=== PATIENT | female | born 1940 | race Caucasian/White ===

== ENCOUNTER 2020-06-20 15:44 | Inpatient (IN) | payer MEDICARE, OTHER ==
[~2020-06-20] VITALS: Ht 162.6 cm; Wt 72.6 kg
--- NOTE | 2020-06-20 16:10 | NUR ---
LIYAH FROM E TO ER BED 12. AAOX4. DYSPNEIC. MODERATE DISTRESS. HYPOXIC NOTED @ 88% ON RA. BEING PLACE ON BIPAP. PT IS BROUGHT IN FOR SOB. PT IS NOTED AFIB RVR ON MONITOR, HR 140s. DAUGTHER REPORTED THAT SHE IS COVID POSITIVE AND PT IS EXPOSED TO HER. MD WAS AT THE BEDSIDE. RT AT BEDSIDE WELL. PT ALREADY ARRIVED WITH IV ON LFA 20G BY EMS.
[2020-06-20] MEDS ORDERED: LEVO88TA5 PO (16:43)
[2020-06-20] MEDS ORDERED: METO100T14 PO (16:43)
[2020-06-20] MEDS ORDERED: ATOR40TA PO (16:43)
[2020-06-20] MEDS ORDERED: CALC500T52 PO (16:43)
[2020-06-20] MEDS ORDERED: OMEP40CA13 PO (16:43)
[2020-06-20] MEDS ORDERED: RALO60TA14 PO (16:43)
[2020-06-20] MEDS ORDERED: RIVA10TA PO (16:43)
[2020-06-20 17:23] LABS: ABG BASE EXCESS -4.2 mmol/L; ABG OXYGEN SATURATION 99.4 % (92.0-98.5); ABG PCO2 29.5 mmHg (35.0-45.0); ABG PH 7.424 (7.350-7.450); ABG PO2 351.8 mmHg (75.0-100.0); AaDO2 331.7 mmHg; COHb 0.3 % (0.5-1.5); MetHb 0.4 % (0.0-1.5); O2Hb 98.7 % (94.0-97.0); SITE, ABG Right Radial; VENT MODE, BG ST 15/5 100%
[2020-06-20 17:37] LABS: CALCIUM, SERUM 8.3 mg/dL (8.5-10.1); CARBON DIOXIDE 24 mmol/L (21-32); CHLORIDE 103 mmol/L (98-107); GLUCOSE 160 mg/dL (74-106); SODIUM SERUM 138 mmol/L (136-145); UREA NITROGEN, BLOOD 21 mg/dL (7-18)
[2020-06-20 17:50] LABS: ALANINE AMINOTRANSFERASE 42 U/L (12-78); ALBUMIN 3.5 g/dL (3.4-5.0); ALKALINE PHOSPHATASE 62 U/L (46-116); ASPARTATE AMINOTRANSFERASE 49 U/L (15-37); B-TYPE NATRIURETIC PEPTIDE 3536 PG/ML (0-125); BILIRUBIN,DIRECT 0.2 mg/dL (0.0-0.2); BILIRUBIN,TOTAL 0.6 mg/dL (0.2-1.0)
[2020-06-20] MEDS ORDERED: METOPROLOL TARTRATE INJ 5 MG/5 ML AMPUL IV ONE ×2 (18:00)
[2020-06-20] MEDS ORDERED: FUROSEMIDE 40 MG/4 ML VIAL IV ONE (18:00)
[2020-06-20] MEDS ORDERED: METOPROLOL TARTRATE INJ 5 MG/5 ML AMPUL ONE (18:01)
[2020-06-20] MEDS ORDERED: FUROSEMIDE 40 MG/4 ML VIAL ONE (18:01)
--- NOTE | 2020-06-20 18:15 | NUR ---
MD AWARE THAT PT'S BP IS 96/69 HR 120. PT HELD METOPROLOL 5MG IV BUT LASIX IS STILL GIVEN PER MD ORDERED
[2020-06-20 18:18] LABS: C-REACTIVE PROTEIN 1.2 mg/dL (0.0-0.9); CREATINE KINASE, TOTAL 206 U/L (26-192); FERRITIN 690 ng/mL (8-388)
[2020-06-20 18:25] LABS: D-DIMER 1.27 mg/L(FEU (0.17-0.50)
--- NOTE | 2020-06-20 19:41 | NUR ---
PAGED [facility].
--- NOTE | 2020-06-20 19:43 | NUR ---
MD MARIE AWARE OF VS. CANCELLED METOPROLOL ORDER
--- NOTE | 2020-06-20 20:11 | NUR ---
LINH, DAUGHTER [phone]
--- NOTE | 2020-06-20 21:37 | NUR ---
PT IS NOW ON NASAL CANULA @ 3LPM. TOLERATING WELL. 02 SAT 96%.
[2020-06-20 22:53] LABS: BASOPHILS % (AUTO) 0.5 % (0.0-2.0); EOSINOPHILS % (AUTO) 0.4 % (0.0-6.0); HEMATOCRIT 42 % (33-45); HEMOGLOBIN 13.7 g/dL (11.5-14.8); LYMPHOCYTES # (AUTO) 0.7 /CMM (0.8-4.8); LYMPHOCYTES % (AUTO) 8.5 % (20.0-44.0); MEAN CORPUSCULAR HGB CONC 32 g/dl (31.0-36.0); MEAN CORPUSCULAR VOLUME 92 fL (82-100); MONOCYTES # (AUTO) 0.5 /CMM (0.1-1.30); MONOCYTES % (AUTO) 5.9 % (2.0-12.0); NEUTROPHILS # (AUTO) 7.2 /CMM (1.8-8.9); NEUTROPHILS % (AUTO) 84.7 % (43.0-81.0); PLATELET COUNT (AUTO) 156 /CMM (150-450); RED BLOOD CELL COUNT(AUTO) 4.59 MIL/uL (4.0-5.2); WHITE BLOOD COUNT (AUTO) 8.6 K/uL (4.3-11.0)
[2020-06-20] MEDS ORDERED: ZOLPIDEM TARTRATE 5 MG TABLET PO PRN (23:00)
[2020-06-20] MEDS ORDERED: Z GUARD REMEDY 2 OZ OINT TP PRN (23:00)
[2020-06-20] MEDS ORDERED: ENOXAPARIN SODIUM 40 MG/0.4 ML DISP.SYRIN SQ SCH (23:00)
[2020-06-20] MEDS ORDERED: ACETAMINOPHEN 325 MG TABLET PO PRN (23:00)
[2020-06-20] MEDS ORDERED: HYDROCODONE/APAP 5/325MG TABLET PO PRN (23:00)
[2020-06-20] MEDS ORDERED: ONDANSETRON HCL/PF 4 MG/2 ML VIAL IVP PRN (23:00)
[2020-06-20] MEDS ORDERED: ENOXAPARIN SODIUM 40 MG/0.4 ML DISP.SYRIN SQ ONE (23:31)
--- NOTE | 2020-06-21 04:07 | NUR ---
patient ambulated to the restroom with a steady gait.
[2020-06-21 04:12] LABS: BASOPHILS % (AUTO) 0.3 % (0.0-2.0); HEMATOCRIT 39 % (33-45); HEMOGLOBIN 12.9 g/dL (11.5-14.8); LYMPHOCYTES # (AUTO) 1.4 /CMM (0.8-4.8); LYMPHOCYTES % (AUTO) 23.7 % (20.0-44.0); MEAN CORPUSCULAR HGB CONC 33 g/dl (31.0-36.0); MEAN CORPUSCULAR VOLUME 92 fL (82-100); MONOCYTES # (AUTO) 0.6 /CMM (0.1-1.30); MONOCYTES % (AUTO) 11.2 % (2.0-12.0); NEUTROPHILS # (AUTO) 3.7 /CMM (1.8-8.9); NEUTROPHILS % (AUTO) 64.8 % (43.0-81.0); PLATELET COUNT (AUTO) 126 /CMM (150-450); RED BLOOD CELL COUNT(AUTO) 4.22 MIL/uL (4.0-5.2); WHITE BLOOD COUNT (AUTO) 5.7 K/uL (4.3-11.0)
[2020-06-21 04:26] LABS: CALCIUM, SERUM 7.7 mg/dL (8.5-10.1); CREATININE 0.8 mg/dL (0.6-1.3); MAGNESIUM 2.3 mg/dL (1.8-2.4); PHOSPHORUS 3.9 mg/dL (2.5-4.9); POTASSIUM 3.4 mmol/L (3.5-5.1)
[2020-06-21] MEDS ORDERED: PANTOPRAZOLE 40 MG TABLET.DR PO SCH (07:30)
--- NOTE | 2020-06-21 07:50 | NUR ---
pt in bed sleeping. easily arrousable. nad noted
[2020-06-21] MEDS: LEVOTHYROXINE SODIUM 88 MCG TABLET PO SCH (08:30)
[2020-06-21] MEDS ORDERED: PANTOPRAZOLE 40 MG TABLET.DR PO ONE (08:42)
[2020-06-21] MEDS ORDERED: ATORVASTATIN 40 MG TABLET ONE (08:44)
[2020-06-21] MEDS ORDERED: METOPROLOL TARTRATE 50 MG TABLET ONE ×2 (08:44→17:17)
[2020-06-21] MEDS ORDERED: POTASSIUM CHLORIDE 20 MEQ TAB.PRT.SR PO ONE ×4 (09:00→11:37)
[2020-06-21] MEDS: RALOXIFENE 60 MG TABLET PO SCH (09:43)
[2020-06-21] MEDS: METOPROLOL TARTRATE 50 MG TABLET PO SCH ×2 (09:44→18:00)
[2020-06-21] MEDS: RIVAROXABAN 10 MG TABLET PO SCH (09:44)
[2020-06-21] MEDS: CALCIUM CARBONATE (1250) 500 MG TABLET PO SCH ×3 (09:44→18:00)
[2020-06-21] MEDS: ATORVASTATIN 40 MG TABLET PO SCH (09:44)
[2020-06-21] MEDS ORDERED: FUROSEMIDE 40 MG/4 ML VIAL ONE ×3 (09:47→17:17)
--- NOTE | 2020-06-21 09:57 | NUR ---
pt provided with breakfast
[2020-06-21] MEDS: FUROSEMIDE 40 MG/4 ML VIAL IV SCH ×3 (10:04→18:02)
[2020-06-21] MEDS: POTASSIUM CHLORIDE 20 MEQ TAB.PRT.SR PO SCH ×3 (10:04→12:40)
--- NOTE | 2020-06-21 13:21 | NUR ---
PT'S DAUGHTER UPDATED REGARDING PT.
--- NOTE | 2020-06-21 21:56 | NUR ---
PT ON 2LPM O2 VIA NC
--- NOTE | 2020-06-22 03:21 | NUR ---
PT AMBULATORY TO RESTROOM WITH STEADY GAIT
[2020-06-22 03:56] LABS: BASOPHILS % (AUTO) 0.2 % (0.0-2.0); EOSINOPHILS % (AUTO) 0.1 % (0.0-6.0); HEMATOCRIT 44 % (33-45); HEMOGLOBIN 14.6 g/dL (11.5-14.8); LYMPHOCYTES # (AUTO) 1.4 /CMM (0.8-4.8); LYMPHOCYTES % (AUTO) 24.9 % (20.0-44.0); MEAN CORPUSCULAR HGB CONC 33 g/dl (31.0-36.0); MEAN CORPUSCULAR VOLUME 91 fL (82-100); MONOCYTES # (AUTO) 0.6 /CMM (0.1-1.30); MONOCYTES % (AUTO) 10.7 % (2.0-12.0); NEUTROPHILS # (AUTO) 3.7 /CMM (1.8-8.9); NEUTROPHILS % (AUTO) 64.1 % (43.0-81.0); PLATELET COUNT (AUTO) 149 /CMM (150-450); RED BLOOD CELL COUNT(AUTO) 4.82 MIL/uL (4.0-5.2); WHITE BLOOD COUNT (AUTO) 5.8 K/uL (4.3-11.0)
[2020-06-22 04:13] LABS: ALBUMIN 3.6 g/dL (3.4-5.0); BILIRUBIN,TOTAL 0.7 mg/dL (0.2-1.0); CALCIUM, SERUM 8.5 mg/dL (8.5-10.1); PHOSPHORUS 2.3 mg/dL (2.5-4.9); POTASSIUM 4.2 mmol/L (3.5-5.1); TOTAL PROTEIN, SERUM 7.2 g/dL (6.4-8.2)
--- NOTE | 2020-06-22 05:18 | NUR ---
PT RESTING COMFORTABLY IN BED. VITAL SIGNS STABLE. NO ACUTE DISTRESS NOTED AT THIS TIME. STILL ON CONTINUOUS TRIMMER CLIMBER AND PULSE OX, WILL CONTINUE TO MONITOR
[2020-06-22] MEDS ORDERED: PANTOPRAZOLE 40 MG TABLET.DR PO SCH (07:30)
[2020-06-22] MEDS: LEVOTHYROXINE SODIUM 88 MCG TABLET PO SCH (08:30)
[2020-06-22] MEDS ORDERED: HYDROCODONE/APAP 5/325MG TABLET ONE (08:51)
[2020-06-22] MEDS ORDERED: PANTOPRAZOLE 40 MG TABLET.DR PO ONE (08:55)
[2020-06-22] MEDS ORDERED: ATORVASTATIN 40 MG TABLET ONE (08:55)
[2020-06-22] MEDS ORDERED: METOPROLOL TARTRATE 50 MG TABLET ONE (08:55)
[2020-06-22] MEDS: RIVAROXABAN 10 MG TABLET PO SCH (09:14)
[2020-06-22] MEDS: CALCIUM CARBONATE (1250) 500 MG TABLET PO SCH ×2 (09:14→13:08)
[2020-06-22] MEDS: RALOXIFENE 60 MG TABLET PO SCH (09:14)
[2020-06-22] MEDS: METOPROLOL TARTRATE 50 MG TABLET PO SCH (09:14)
[2020-06-22] MEDS: ATORVASTATIN 40 MG TABLET PO SCH (09:14)
[2020-06-22] MEDS ORDERED: DEXAMETHASONE SOD PHOSPHATE 10 MG/ML VIAL IV SCH (12:30)
[2020-06-22] MEDS ORDERED: DEXAMETHASONE SOD PHOSPHATE 10 MG/ML VIAL ONE (12:41)
--- NOTE | 2020-06-22 13:00 | NUR ---
called pts hank aguilar to pick pt up for dc. all dc instructions provided to daughter amanda and the pt herself. Patient discharged to home in stable condition. Written and verbal after care instructions given. Patient verbalizes understanding of instruction. IV removed. Catheter intact and site benign. Pressure and 4x4 applied to site. No bleeding noted. prescription provided to pt. all belongings were taken by the pt
[2020-06-22 15:56] VITALS: BP 133/79
== END 2020-06-22 15:58 | disposition home or self-care (01) | DRG 177 ==
LOC: ER 15:57 → TRANSITION 22:12
PROVIDERS: ADMIT Nurse Practitioner Acute Care; ATTEND Nurse Practitioner Acute Care
DX: U07.1 COVID-19 (principal); J96.01 Acute respiratory failure with hypoxia; I50.31 Acute diastolic (congestive) heart failure; I21.A1 Myocardial infarction type 2; E87.2 Acidosis; I48.20 Chronic atrial fibrillation, unspecified; I11.0 Hypertensive heart disease with heart failure; Z20.828 Contact with and (suspected) exposure to other viral communicable diseases; I25.10 Atherosclerotic heart disease of native coronary artery without angina pectoris; Z95.5 Presence of coronary angioplasty implant and graft; Z79.899 Other long term (current) drug therapy; Z79.01 Long term (current) use of anticoagulants; E78.5 Hyperlipidemia, unspecified; E87.6 Hypokalemia; E03.9 Hypothyroidism, unspecified; E66.9 Obesity, unspecified
CPT/HCPCS: 36415; 36600; 71045-TC; 80048-TC; 80053-TC; 80061-TC; 80076-TC; 82550-TC; 82728-TC; 82803-TC; 83605-TC; 83615-TC; 83735-TC; 83880; 84100-TC; 84484-TC; 85025-TC; 85378-TC; 85385-TC; 85730-TC; 86140-TC; 87040-TC; 87081-TC; 93307-TC; 94660; 94799-TC; G0378; J1100; J1650; J1940; J2405; J3490; U0003

== ENCOUNTER 2022-10-01 18:07 | Inpatient (IN) | payer MEDICARE, OTHER ==
[~2022-10-01] VITALS: Ht 165.1 cm; Wt 65.8 kg
[~2022-10-01 18:07] MED LIST: ATOR40TA PO; CALC500T52 PO; LEVO88TA5 PO; METO100T14 PO; OMEP40CA21 PO; RALO60TA14 PO; RIVA10TA PO
--- NOTE | 2022-10-01 18:24 | NUR ---
CALLED CODE STROKE
--- NOTE | 2022-10-01 18:26 | NUR ---
PT TO CT VIA ACLS PROTOCALS.
--- NOTE | 2022-10-01 18:27 | NUR ---
HOUSE SUP BEDSIDE WITH TELEMED IQ ROBOT
--- NOTE | 2022-10-01 18:28 | NUR ---
Not able to assess patients mental status, patient not able to follow command. Sean at bedside trying to orient pt. Patient with no signs of distress or discomfort. Discussed plan of care with jemma and CODE Stroke protocols, sean verbalized agreement with plan.
--- NOTE | 2022-10-01 18:28 | NUR ---
[facility] MED IQ [phone] ISAIAS TRIPATHI.
[2022-10-01] MEDS ORDERED: IOHEXOL-350 100 ML VIAL IV ONE (18:29)
[2022-10-01] MEDS ORDERED: IV NS 0.9% 250 ML IV ONE (18:29)
[2022-10-01 18:45] LABS: CALCIUM, SERUM 8.5 mg/dL (8.5-10.1); CARBON DIOXIDE 25 mmol/L (21-32); CHLORIDE 108 mmol/L (98-107); GLUCOSE 132 mg/dL (74-106); POTASSIUM 3.3 mmol/L (3.5-5.1); SODIUM SERUM 141 mmol/L (136-145); UREA NITROGEN, BLOOD 14 mg/dL (7-18)
[2022-10-01 18:47] LABS: BASOPHILS % (AUTO) 0.4 % (0.0-2.0); EOSINOPHILS % (AUTO) 3.6 % (0.0-6.0); HEMATOCRIT 28 % (33-45); HEMOGLOBIN 9.2 g/dL (11.5-14.8); LYMPHOCYTES # (AUTO) 1.8 K/uL (0.8-4.8); LYMPHOCYTES % (AUTO) 28.2 % (20.0-44.0); MEAN CORPUSCULAR HGB CONC 33 g/dl (31.0-36.0); MEAN CORPUSCULAR VOLUME 94 fL (82-100); MONOCYTES # (AUTO) 0.4 K/uL (0.1-1.30); MONOCYTES % (AUTO) 6.4 % (2.0-12.0); NEUTROPHILS # (AUTO) 3.9 K/uL (1.8-8.9); NEUTROPHILS % (AUTO) 61.4 % (43.0-81.0); PLATELET COUNT (AUTO) 200 K/uL (150-450); RED BLOOD CELL COUNT(AUTO) 3.03 MIL/uL (4.0-5.2); WHITE BLOOD COUNT (AUTO) 6.4 K/uL (4.3-11.0)
--- NOTE | 2022-10-01 18:50 | NUR ---
Not able to assess patient mental status. Sean at bedside trying to help orient patient. Patient with no signs of distress but having trouble comprehending and speaking. Per daughter she is speaking words but does not make sense (word salad). All safety precautions taken, wiill continue to monitor throughout shift.
[2022-10-01 18:51] LABS: ALANINE AMINOTRANSFERASE 10 U/L (12-78); ALBUMIN 3.2 g/dL (3.4-5.0); ALKALINE PHOSPHATASE 57 U/L (46-116); ASPARTATE AMINOTRANSFERASE 25 U/L (15-37); BILIRUBIN,DIRECT 0.1 mg/dL (0.0-0.2); BILIRUBIN,TOTAL 0.2 mg/dL (0.2-1.0); TOTAL PROTEIN, SERUM 6.3 g/dL (6.4-8.2)
--- NOTE | 2022-10-01 18:54 | NUR ---
TROP 67
--- NOTE | 2022-10-01 19:32 | NUR ---
COVID swab collected and sent to the lab.
--- NOTE | 2022-10-01 19:33 | NUR ---
Hand off report given to Monica MO. for continuity of care
[2022-10-01] MEDS ORDERED: POTASSIUM CHLORIDE 20 MEQ TAB.PRT.SR PO ONE ×2 (20:00→22:02)
[2022-10-01] MEDS ORDERED: PANTOPRAZOLE 40 MG TABLET.DR PO ONE (20:12)
[2022-10-01] MEDS ORDERED: SIMVASTATIN 20 MG TABLET ONE (20:13)
--- NOTE | 2022-10-01 20:32 | NUR ---
US TECH AT PT'S BEDSIDE
[2022-10-01 21:19] LABS: THYROID STIMULATING HORMONE 0.77 uIU/mL (0.358-3.74)
--- NOTE | 2022-10-01 21:50 | NUR ---
URINE COLLECTED AND SENT TO LAB
[2022-10-01] MEDS: IV D5/ 0.9% NACL 1,000 ML IV PRN ×2 (21:51→22:03)
[2022-10-01] MEDS ORDERED: SIMVASTATIN 40 MG TABLET PO SCH (22:00)
--- NOTE | 2022-10-01 22:00 | NUR ---
REPORT GIVEN TO CHELY CORDERO. PT GOING TO 324.
--- NOTE | 2022-10-01 22:30 | NUR ---
OUTSIDE SALES ENGINEERBILLING DEPARTMENT SUPERVISOR NOTES - RECEIVED PATIENT FROM ED AT 2217 [facility] [facility] UNDER THE CARE OF EVITA MCCRACKEN NP WITH DX OF STROKE. SHE IS ACCOMPANIED BY HER DAUGHTER AND GRANDDAUGHTER WHO TRANSLATED FOR HER. PATIENT IS ALERT AND UGANDAN SPEAKING, HOWEVER, SHE DOESN'T GIVE THE RIGHT ANSWER WHEN ASKED WHAT IS HER NAME. ALL PMI OBTAINED FROM FAMILY. HER BREATHING IS EVEN AND NON-LABORED. NO C/O OF CHEST PAIN, N/V, DIZZINESS OR CONSTIPATION. SHE HAS BEEN HAVING DIARRHEA WITH BRIGHT RED BLOOD AT HOME. HAS THE FF IV ACCESS: RIGHT FOREARM #18G WITH D5NS RUNNING AT 50 ML/HR, LEFT WRIST #20G AND SALINE LOCKED. NO S/S OF INFILTRATION NOTED. VITAL SIGNS TAKEN AND PHYSICAL ASSESSMENT DONE. NO SKIN ISSUES OR EDEMA NOTED. ALL BELONGINGS ACCOUNTED FOR. ORIENTED PATIENT AND FAMILY TO UNIT AND STAFF. PATIENT IS ON BED REST PENDING PT EVALUATION. INDEPENDENT ON ADLS. NO COUGHING OR CHOKING ON SWALLOW EVAL. CONTINENT USING BEDPAN. SAFETY PRECAUTIONS IN PLACE: BED LOCKED AND IN LOW POSITION, SIDE RAILS UP X2, BED ALARM ON, CALL LIGHT WITHIN REACH. WILL CONTINUE PLAN OF CARE.
[2022-10-01 22:40] VITALS: BP 146/93
[2022-10-01 22:52] LABS: BILIRUBIN,URINE NEGATIVE (NEGATIVE); COLOR,URINE YELLOW (YELLOW); LEUKOCYTE ESTERASE ,URINE NEGATIVE (NEGATIVE); NITRITE, URINE NEGATIVE (NEGATIVE); PH,URINE 6.5 (5.0-8.0); PROTEIN,URINE NEGATIVE (NEGATIVE); UGLUCOSE NEGATIVE (NEGATIVE); UROBILINOGEN,URINE 0.2 EU/dL (0.2)
--- NOTE | 2022-10-01 23:57 | NUR ---
NOTIFIED HOSPITALIST EVITA MCCRACKEN THAT I'M UNABLE TO DO THE NIHSS STROKE SCALE AND NURSING SWALLOW EVALUATION PROPERLY SINCE PATIENT BECAME AGITATED AND UNCOOPERATIVE. DTR AND GRAND DTR WERE PRESENT IN THE ROOM TRANSLATING.
[2022-10-02] VITALS (26 sets, daily range): BP systolic 129–184; BP diastolic 56–122
--- NOTE | 2022-10-02 05:04 | NUR ---
RECEIVED CALL FROM LAB, CRITICAL VALUE. TROPONIN 67. NOTIFIED HOSPITALIST EVITA WITH NO NEW ORDER.
[2022-10-02 06:09] LABS: BASOPHILS % (AUTO) 0.5 % (0.0-2.0); EOSINOPHILS % (AUTO) 4.1 % (0.0-6.0); HEMATOCRIT 28 % (33-45); HEMOGLOBIN 9.1 g/dL (11.5-14.8); LYMPHOCYTES # (AUTO) 1.4 K/uL (0.8-4.8); LYMPHOCYTES % (AUTO) 30.7 % (20.0-44.0); MEAN CORPUSCULAR HGB CONC 32 g/dl (31.0-36.0); MEAN CORPUSCULAR VOLUME 94 fL (82-100); MONOCYTES # (AUTO) 0.4 K/uL (0.1-1.30); MONOCYTES % (AUTO) 8.2 % (2.0-12.0); NEUTROPHILS # (AUTO) 2.6 K/uL (1.8-8.9); NEUTROPHILS % (AUTO) 56.5 % (43.0-81.0); PLATELET COUNT (AUTO) 169 K/uL (150-450); RED BLOOD CELL COUNT(AUTO) 3.01 MIL/uL (4.0-5.2); WHITE BLOOD COUNT (AUTO) 4.6 K/uL (4.3-11.0)
[2022-10-02 06:28] LABS: CHOLESTEROL 102 mg/dL (<200); HDL CHOLESTEROL 50 mg/dL (40-60); LDL 49 mg/dL (0-99); TRIGLYCERIDES 77 mg/dL (30-150)
[2022-10-02 06:29] LABS: CALCIUM, SERUM 8.4 mg/dL (8.5-10.1); CARBON DIOXIDE 25 mmol/L (21-32); CHLORIDE 108 mmol/L (98-107); CREATININE 0.6 mg/dL (0.6-1.3); GLUCOSE 112 mg/dL (74-106); SODIUM SERUM 139 mmol/L (136-145); UREA NITROGEN, BLOOD 12 mg/dL (7-18)
--- NOTE | 2022-10-02 06:38 | NUR ---
DOCK OPERATIONS SUPERVISOR CLOSING NOTES - PATIENT SLEEPING, EASY TO AROUSE. STILL WITH EXPRESSIVE APHASIA. NO CARDIAC OR RESPIRATORY DISTRESS THROUGHOUT THE NIGHT. NO S/S OF PAIN OR DISCOMFORT NOTED. AFEBRILE. NO BLEEDING NOTED. ON TELE MONITOR READING CONTROLLED A-FIB AT 66 BPM. RIGHT FOREARM IV ACCESS INTACT, PATENT AND FLUSHING. ALL NEEDS ATTENDED AND ANTICIPATED. SAFETY PRECAUTIONS MAINTAINED. WILL ENDORSE TO NEXT SHIFT FOR JESSICA.
--- NOTE | 2022-10-02 07:40 | NUR ---
SAFETY AND SECURITY MANAGER OPENING NOTE PT AWAKE IN BED, ALERT, PT IS ON RA BREATHING EVEN AND NON LABORED. NO S/S OF DISTRESS/SOB NOTED AT THIS TIME. PT IS ON EXTERNAL TRUCK CRANE OPERATOR READING AFIB @96 BPM. IV ACCESS RIGHT FOREARM #18G WITH D5NS RUNNING AT 50 ML/HR, LEFT WRIST #20G AND SALINE LOCKED. SAFETY MEASURES ARE IN PLACED: BED IN LOWEST AND LOCKED POSITION; SIDE RAILS UP X 3; BED ALARM IS SET; CALL LIGHT AND TABLE ARE WITHIN REACH. WILL CONTINUE MONITORING THE PT AND PROVIDE THE CARE PT NEEDS.
[2022-10-02] MEDS: PANTOPRAZOLE 40 MG TABLET.DR PO SCH (08:32)
[2022-10-02 08:37] LABS: THYROID STIMULATING HORMONE 0.843 uIU/mL (0.358-3.74)
--- NOTE | 2022-10-02 13:20 | NUR ---
RECEIVED PATIENT FROM [facility] UNIT, NO SSX OF ACUTE DISTRESS NOTED; REPORT GIVEN BY BHUPENDRA MARADIAGA; ORAL TEMP=98.3F; FAMILY AT BEDSIDE. WILL CONTINUE TO MONITOR.
--- NOTE | 2022-10-02 13:34 | NUR ---
RN NOTE PT TRANSFERRED TO ICU FOR NEURO CARE AND OBSERVATION PER MD ORDER, TRANSFERRED TO ROOM 257, REPORT GIVEN TO ICU NURSE. NO S/S OF ACUTE DISTRESS NOTED WHILE TRANSFER. VS STABLE, NO SOB NOTED DURING TRANSFER. PT DAUGHTER BY HER SIDE.
[2022-10-02] MEDS: CALCIUM CARBONATE (1250) 500 MG TABLET PO SCH ×2 (14:32→17:17)
[2022-10-02] MEDS: RIVAROXABAN 10 MG TABLET PO SCH (17:19)
--- NOTE | 2022-10-02 17:19 | NUR ---
CALLED ADAM MO IN ICU TO REPORT TROP OF 60
[2022-10-02] MEDS: IV D5/ 0.9% NACL 1,000 ML IV PRN (17:20)
--- NOTE | 2022-10-02 19:15 | NUR ---
ESTHETIC DERMATOLOGIST NOTE RECEIVED PT FOR CONTINUITY OF CARE. PATIENT IN BED IN NO S/SX OF ACUTE DISTRESS AT THIS TIME; CURRENTLY ON ROOM AIR, WITH 02 SAT >95% AT THIS TIME. SR ON MONITOR. FAMILY AT BEDSIDE. IV ACCESS ON R FA#18 AND L WRIST #20 BOTH PATENT, INTACT AND FLUSHING WELL WITH D5NS@50ML/HR. ON 2G SODIUM DIET. WITH COMMODE AT BEDSIDE. WILL ENSURE SAFETY MEASURES WITHIN THE SHIFT. PATIENT BED ALARM IS ON. HEAD OF BED ELEVATED. BED IS LOCKED, IN LOWEST POSITION AND SIDE RAILS UP. CALL LIGHT WITHIN REACH OF THE PATIENT. WILL CONTINUE TO MONITOR AND REASSESS FOR ANY CHANGES AND WILL CARRY OUT ANY ONGOING AND ACTIVE MD ORDER.
[2022-10-02] MEDS: SIMVASTATIN 20 MG TABLET PO SCH (21:15)
[2022-10-02] MEDS: hydrALAZINE HCL IV 20 MG VIAL IV PRN (22:06)
--- NOTE | 2022-10-02 22:56 | NUR ---
ELECTROCARDIOGRAPH REPAIRER NOTE PT'S HR RUNNING 110-120s, NOTIFIED ONCHUEY SCRUGGS (EVITA,SILICA MIXER OPERATOR) EKG DONE; AFIB. AWARE. NO NEW ORDERS. KNIT GOODS WASHER MADE AWARE.
[2022-10-03] VITALS (47 sets, daily range): BP systolic 88–179; BP diastolic 33–108
[2022-10-03] MEDS: hydrALAZINE HCL IV 20 MG VIAL IV PRN ×2 (03:37→16:12)
--- NOTE | 2022-10-03 03:55 | NUR ---
FUEL DISTRIBUTION SYSTEM OPERATOR NOTE PT NOTED TO BE RESTLESS AND EPISODES OF NAUSEA, HR IS NOW >130 AFIB WITH RVR, NOTIFIED ONCHUEY (EVITA,OSVALDO). ONCHUEY SCRUGGS ACKNOWLEDGED STATUS UPDATE. SECURED FOR ZOFRAN 4MG Q6H PRN. RN ACKNOWLEDGED. SIEVE MAKER MADE AWARE. WILL CARRY OUT AND CONT TO MONITOR.
[2022-10-03] MEDS: ONDANSETRON HCL/PF 4 MG/2 ML VIAL IV PRN ×4 (04:31→23:48)
[2022-10-03 05:02] LABS: BASOPHILS % (AUTO) 0.3 % (0.0-2.0); EOSINOPHILS % (AUTO) 0.7 % (0.0-6.0); HEMATOCRIT 30 % (33-45); HEMOGLOBIN 9.4 g/dL (11.5-14.8); LYMPHOCYTES # (AUTO) 1.1 K/uL (0.8-4.8); LYMPHOCYTES % (AUTO) 11.7 % (20.0-44.0); MEAN CORPUSCULAR HGB CONC 32 g/dl (31.0-36.0); MEAN CORPUSCULAR VOLUME 94 fL (82-100); MONOCYTES # (AUTO) 0.5 K/uL (0.1-1.30); MONOCYTES % (AUTO) 5.3 % (2.0-12.0); NEUTROPHILS # (AUTO) 7.5 K/uL (1.8-8.9); PLATELET COUNT (AUTO) 213 K/uL (150-450); RED BLOOD CELL COUNT(AUTO) 3.15 MIL/uL (4.0-5.2); WHITE BLOOD COUNT (AUTO) 9.1 K/uL (4.3-11.0)
[2022-10-03 05:19] LABS: CALCIUM, SERUM 8.8 mg/dL (8.5-10.1); CREATININE 0.7 mg/dL (0.6-1.3); MAGNESIUM 2.1 mg/dL (1.8-2.4); PHOSPHORUS 2.7 mg/dL (2.5-4.9); POTASSIUM 3.4 mmol/L (3.5-5.1)
--- NOTE | 2022-10-03 06:58 | NUR ---
DISABILITY INSURANCE HEARING OFFICER NOTE PATIENT REMAINS IN ROOM IN NO SIGNS OF RESPIRATORY DISTRESS, PATIENT STILL ON ROOM AIR ;TOLERATING WELL SATURATING @ >95% SP02. AFIB ON MONITOR HR RANGING FROM 90-100S (MD AWARE). HAD EPISODES OF HIGH BP >170, NAUSEA AND RESTLESSNESS DURING THE SHIFT; PRN MEDICATIONS GIVEN. SAFETY MEASURES IMPLEMENTED, BED IN LOWEST POSITION, LOCKED, SIDE RAILS UP, CALL LIGHT WITHIN REACH. ALL NEEDS AND ORDERS ADDRESSED DURING THE SHIFT. IV ACCESS MAINTAINED INTACT, SECURED AND FLUSHING WELL. ALL DUE MEDS GIVEN ORDERED & SCHEDULED ; PATIENT TOLERATED WELL. PATIENT KEPT CLEAN AND COMFORTABLE WITHIN THE SHIFT. PATIENT ENDORSED TO INCOMING SHIFT RN WITH STABLE VITAL SIGN AND FOR CONTINUITY OF CARE.
[2022-10-03] MEDS: PANTOPRAZOLE 40 MG TABLET.DR PO SCH (07:51)
[2022-10-03] MEDS: LEVOTHYROXINE SODIUM 88 MCG TABLET PO SCH (07:51)
--- NOTE | 2022-10-03 08:00 | NUR ---
RN NOTES RECEIVED 81/Y/OLD FEMALE ON Dx OF STROKE , A/O X1, CONFUSED AT THIS TIME. NEURO ASSESSMENT DONE FOLLOW COMMAND ONLY RIGHT LEG REFUSED TO ELEVATE. PATIENT ROOM AIR , ABLE TO TURN AND REPOSTION SELF, LAB VALUES REVIEWED, VSS, SKIN INTACT. PATIENT USING BEDSIDE COMMODE ASSIST FOR IT. CALL LIGHT WITHIN TO REACH. IV ACCESS ON RIGHT WRIST, AND MIRNA INTACT. BED ALARM ON. WILL FOLLOW UP.
[2022-10-03] MEDS: POTASSIUM CHLORIDE 20 MEQ TAB.PRT.SR PO SCH ×2 (08:25→09:00)
[2022-10-03] MEDS: CALCIUM CARBONATE (1250) 500 MG TABLET PO SCH ×3 (08:25→16:11)
--- NOTE | 2022-10-03 08:26 | NUR ---
rn notes administered Zofran 4 mg /ml iv push for nausea and vomiting.
[2022-10-03] MEDS: RALOXIFENE 60 MG TABLET PO SCH (09:00)
[2022-10-03] MEDS: ACETAMINOPHEN 325 MG TABLET PO PRN ×3 (09:00→21:02)
--- NOTE | 2022-10-03 09:00 | NUR ---
RN NOTES PATIENT WAS COMPLAINING OF HEADACHE, GET ORDER TYLENOL 650 MG PO PRN Q6 HR ORDER TAKEN AND CARRIED OUT.
--- NOTE | 2022-10-03 09:10 | NUR ---
RN NOTES ADMINISTERED TYLENOL 650 MG PO PRN FOR HEADACHE, MEDICATION WERE ADMINISTERED FOR NAUSEA EFFECTIVE. DAUGHTER NEXT TO THE BED. PATIENT REMOVED MIRNA IV ACCESS, REFUSED TO BE INSERTED, GET ORDER MIDLINE INSERTION PER HOSPITALIST. ALSO SEEN PATIENT VIA NEUROLOGIST PROFESSOR OF FINANCE. NO NEW ORDER AT THIS TIME. WILL FOLLOW UP.
[2022-10-03] MEDS: POTASSIUM CL. PREMIX PERIPHER. 50 ML IV SCH ×4 (11:07→14:41)
--- NOTE | 2022-10-03 11:57 | NUR ---
RN NOTES PATIENT GET MIDLINE INSERTION ON EVAN INTACT, STARTED KCL INFUSION PER ORDER.
--- NOTE | 2022-10-03 12:15 | NUR ---
RN NOTES SPEACH THERAPIST WITH THE PATIENT AT THIS TIME, FOR SWALLOW EVALUATION , PATIENT PASS THE TEST, A/O X1, CONFUSED.
[2022-10-03] MEDS: DIGOXIN INJ 0.5 MG/2 ML AMPUL IV SCH ×3 (12:27→23:49)
[2022-10-03] MEDS: SOD FERRIC GLUC 125 MG in IV NS 0.9% 100 ML IV SCH (14:21)
--- NOTE | 2022-10-03 15:42 | NUR ---
RN NOTES ADMINISTERED TYLENOL 650 MG PO PRN FOR HEADACHE 09/29 PER PATIENT REQUEST.
[2022-10-03] MEDS: RIVAROXABAN 10 MG TABLET PO SCH (16:11)
--- NOTE | 2022-10-03 16:12 | NUR ---
RN NOTES ADMINISTERED HYDRALAZINE 10MG/ML IV PUSH FOR BP 179/80, P-120. REPORT GIVEN ISIAH FOLLOW PLAN OF CARE.
--- NOTE | 2022-10-03 17:00 | NUR ---
PUBLICATION DIRECTOR NOTE Received handover from CHELY Ramos. Patient's GCS E4V4M5, bilateral pupils 3mm PEARLLA. playground monitor showed AF with RVR, HR 118/min. Left UA midline and left wrist IV site are dry and intact, patent with NS flush. Bed is placed in the lowest position. Safety measures have been implemented. Will continue monitoring and care.
--- NOTE | 2022-10-03 19:15 | NUR ---
PLYWOOD LAYUP LINE CORE LAYER NOTE RECEIVED PT FOR CONTINUITY OF CARE. PATIENT IN BED SLEEPING, IN NO S/SX OF ACUTE DISTRESS AT THIS TIME; CURRENTLY ON ROOM AIR, WITH 02 SAT >95% AT THIS TIME. AFIB ON MONITOR; CONTROLLED, HR AT 88 AT THIS TIME. FAMILY AT BEDSIDE. IV ACCESS ON L UA ML AND L WRIST #20 BOTH PATENT, INTACT AND FLUSHING WELL ON 2G SODIUM DIET. WITH COMMODE AT BEDSIDE. WILL ENSURE SAFETY MEASURES WITHIN THE SHIFT. PATIENT BED ALARM IS ON. HEAD OF BED ELEVATED. BED IS LOCKED, IN LOWEST POSITION AND SIDE RAILS UP. CALL LIGHT WITHIN REACH OF THE PATIENT. WILL CONTINUE TO MONITOR AND REASSESS FOR ANY CHANGES AND WILL CARRY OUT ANY ONGOING AND ACTIVE MD ORDER.
[2022-10-03] MEDS: SIMVASTATIN 20 MG TABLET PO SCH (21:02)
[2022-10-04] VITALS (26 sets, daily range): BP systolic 88–158; BP diastolic 38–96
--- NOTE | 2022-10-04 04:00 | NUR ---
SET BUILDER NOTE PATIENT REMAINED TO BE IN NO SIGNS OF ACUTE RESPIRATORY DISTRESS , SAFE ENVIRONMENT MAINTAINED FOR PT. AM PATIENT CARE ASSISTANCE RENDERED. WILL CONTINUE TO MONITOR AND REASSESS FOR ANY CHANGES THROUGHOUT THE SHIFT.
[2022-10-04 04:47] LABS: BASOPHILS % (AUTO) 0.3 % (0.0-2.0); EOSINOPHILS % (AUTO) 3.1 % (0.0-6.0); HEMATOCRIT 29 % (33-45); HEMOGLOBIN 9.5 g/dL (11.5-14.8); LYMPHOCYTES # (AUTO) 1.1 K/uL (0.8-4.8); LYMPHOCYTES % (AUTO) 11.3 % (20.0-44.0); MEAN CORPUSCULAR HGB CONC 32 g/dl (31.0-36.0); MEAN CORPUSCULAR VOLUME 93 fL (82-100); MONOCYTES # (AUTO) 0.5 K/uL (0.1-1.30); MONOCYTES % (AUTO) 5.2 % (2.0-12.0); NEUTROPHILS % (AUTO) 80.1 % (43.0-81.0); PLATELET COUNT (AUTO) 242 K/uL (150-450); RED BLOOD CELL COUNT(AUTO) 3.15 MIL/uL (4.0-5.2)
[2022-10-04 05:01] LABS: CREATININE 0.8 mg/dL (0.6-1.3); MAGNESIUM 2.1 mg/dL (1.8-2.4); POTASSIUM 4.1 mmol/L (3.5-5.1)
--- NOTE | 2022-10-04 06:30 | NUR ---
SENIOR FIRE PROTECTION ENGINEER NOTE PATIENT REMAINS IN ROOM IN NO SIGNS OF RESPIRATORY DISTRESS, PATIENT STILL ON ROOM AIR ;TOLERATING WELL SATURATING @ >95% SP02. AFIB ON MONITOR; CONTROLLED. NEURO CHECK DONE. PT NOTED TO BE MORE ALERT AND ORIENTED. SAFETY MEASURES IMPLEMENTED, BED IN LOWEST POSITION, LOCKED, SIDE RAILS UP, CALL LIGHT WITHIN REACH. ALL NEEDS AND ORDERS ADDRESSED DURING THE SHIFT. IV ACCESS MAINTAINED INTACT, SECURED AND FLUSHING WELL. ALL DUE MEDS GIVEN ORDERED & SCHEDULED ; PATIENT TOLERATED WELL. PATIENT KEPT CLEAN AND COMFORTABLE WITHIN THE SHIFT. PATIENT ENDORSED TO INCOMING SHIFT RN WITH STABLE VITAL SIGN AND FOR CONTINUITY OF CARE.
--- NOTE | 2022-10-04 07:15 | NUR ---
DEPARTMENT CHAIRPERSON NOTE Patient's GCS E4V4M6, bilateral pupils 3mm PEARLA. Limb power 4/5 on four limbs. monitor technician showed AF with HR 133/min. Bp 143/72mmHg. Patient is able to walk for a few steps with standby assistance. Assistance patient to the commode and sit on a chair. Call villeda is placed within reach. Will continue care and monitoring.
[2022-10-04] MEDS: PANTOPRAZOLE 40 MG TABLET.DR PO SCH (08:17)
[2022-10-04] MEDS: LEVOTHYROXINE SODIUM 88 MCG TABLET PO SCH (08:18)
[2022-10-04] MEDS: RALOXIFENE 60 MG TABLET PO SCH (08:18)
[2022-10-04] MEDS: CALCIUM CARBONATE (1250) 500 MG TABLET PO SCH ×3 (08:18→17:09)
--- NOTE | 2022-10-04 08:30 | NUR ---
LEGAL SUPPORT ASSISTANT NOTE Patient tolerated sit-out for 1 hour without dizziness. HR remains in the 100s. SBP drops a bit to 99, keep observation.
[2022-10-04] MEDS: METOPROLOL TARTRATE 25 MG TABLET PO SCH ×2 (12:34→17:10)
[2022-10-04] MEDS: SOD FERRIC GLUC 125 MG in IV NS 0.9% 100 ML IV SCH (15:09)
--- NOTE | 2022-10-04 16:40 | NUR ---
SERVICE SPECIALIST NOTE Transferred patient from ICU to telemetry room 106 by wheelchair. Patient's vital signs are stable, no discomfort reported. Patient's daughter Uma and granddaughter Vivian are informed of the transfer. Handover is given to CHELY Bynum.
--- NOTE | 2022-10-04 16:51 | NUR ---
rn note ICU TRANSFER NOTE RECEIVED REPORT FROM PERRINTON CONSERVATION PLANNER FOR CONTUITY OF CARE
[2022-10-04] MEDS: RIVAROXABAN 10 MG TABLET PO SCH (17:12)
--- NOTE | 2022-10-04 19:01 | NUR ---
RN OPENING NOTE RECEIVED PATIENT IN BED WITH FAMILY AT BEDSIDE. PATIENT IS AAO X3-4, PRYDEINIG SPEAKING, BUT UNDERSTANDS SIMPLE COMMANDS IN BELARUSIAN. ON RA WITH O2 SAT OF 99%. ON TELE MONITOR SHOWING CONTROLLED AFIB, HR 77. IV ACCESS ON EVAN MIDLINE, INTACT AND FLUSHES WELL. PATIENT IS AMBULATORY, BUT WITH STANDBY ASSIST. SAFETY MEASURES IN PLACE: BED LOCKED AND IN LOWEST POSITION, SIDE RAILS UP X3, CALL LIGHT WITHIN REACH, BED ALARM ON.
--- NOTE | 2022-10-04 19:15 | NUR ---
BIOMEDICAL SERVICE ENGINEER CLOSING NOTE PT IS ALERT AND ORIENTED X3-4. PT IS LUXEMBOURGISH SPEAKING UNDERSTANDS SIMPLE COMMANDS IN [place]. CONTROLLED AFIB 77 ON TELE MONITOR. PT ON ROOM AIR TOLERATING AT 99%. PT HAS LEFT UPPER ARM MIDLINE. IV INTACT, PATENT AND FLUSHING WELL. PT IS STANDYBY ASSITANCE. ALL SAFTEY MEASURES IN PLACE. CALL LIGHT WITHIN REACH. BED LOCKED AT LOWEST POSITION. SIDE RAILS UP X2. FAMILY AT BEDSIDE.ENDORSED TO FORENSIC MANAGER RN FOR CONTUITY OF CARE
[2022-10-04] MEDS: SIMVASTATIN 20 MG TABLET PO SCH (21:42)
[2022-10-05] VITALS: BP 126/66
[2022-10-05] MEDS: METOPROLOL TARTRATE 25 MG TABLET PO SCH ×5 (00:17→17:03)
[2022-10-05 04:00] VITALS: BP 126/69
[2022-10-05] MEDS: ACETAMINOPHEN 325 MG TABLET PO PRN ×2 (05:29→12:43)
--- NOTE | 2022-10-05 05:40 | NUR ---
RN NOTE PATIENT C/O OF GENERALIZED PAIN, ADMINISTERED TYLENOL 650MG.
[2022-10-05 06:22] LABS: BASOPHILS % (AUTO) 0.4 % (0.0-2.0); EOSINOPHILS % (AUTO) 6.1 % (0.0-6.0); HEMATOCRIT 33 % (33-45); HEMOGLOBIN 10.2 g/dL (11.5-14.8); LYMPHOCYTES # (AUTO) 1.4 K/uL (0.8-4.8); LYMPHOCYTES % (AUTO) 16.7 % (20.0-44.0); MEAN CORPUSCULAR HGB CONC 31 g/dl (31.0-36.0); MEAN CORPUSCULAR VOLUME 96 fL (82-100); MONOCYTES # (AUTO) 0.6 K/uL (0.1-1.30); MONOCYTES % (AUTO) 7.2 % (2.0-12.0); NEUTROPHILS # (AUTO) 5.9 K/uL (1.8-8.9); NEUTROPHILS % (AUTO) 69.6 % (43.0-81.0); PLATELET COUNT (AUTO) 249 K/uL (150-450); RED BLOOD CELL COUNT(AUTO) 3.41 MIL/uL (4.0-5.2); WHITE BLOOD COUNT (AUTO) 8.5 K/uL (4.3-11.0)
--- NOTE | 2022-10-05 06:52 | NUR ---
RN CLOSING NOTE PATIENT IN BED, ASLEEP, BUT AROUSABLE WHEN CALLED. PATIENT IS AAO X3-4, ON RA WITH O2 SAT OF 97%. ON TELE MONITOR SHOWING CONTROLLED AFIB, HR 76. IV ACCESS ON EVAN MIDLINE S/L AND L WRIST S/L. BOTH INTACT AND FLUSHES WELL. PATIENT IS AMBULATORY, BUT WITH STANDBY ASSIST. SAFETY MEASURES MAINTAINED: BED LOCKED AND IN LOWEST POSITION, SIDE RAILS UP X3, CALL LIGHT WITHIN REACH, BED ALARM ON. ALL DUE MEDS WERE GIVEN AND NEEDS ATTENDED. WILL ENDORSE TO ONCOMING NURSE FOR JESSICA.
--- NOTE | 2022-10-05 07:13 | NUR ---
OPERATIONS PLANT ATTENDANT OPENING NOTE PT IS ALERT AND ORIENTED X3-4. PT IS UZBEK SPEAKING UNDERSTANDS SIMPLE COMMANDS IN GERMAN. ON TELE MONITOR. PT ON ROOM AIR TOLERATING ABOVE 92%. PT HAS LEFT UPPER ARM MIDLINE. IV INTACT, PATENT AND FLUSHING WELL. PT IS STANDBY ASSISTANCE. ALL SAFTEY MEASURES IN PLACE. CALL LIGHT WITHIN REACH. BED LOCKED AT LOWEST POSITION. SIDE RAILS UP X2. BED ALARM ON
[2022-10-05 07:16] LABS: CALCIUM, SERUM 8.8 mg/dL (8.5-10.1); CREATININE 0.9 mg/dL (0.6-1.3); MAGNESIUM 2.2 mg/dL (1.8-2.4); PHOSPHORUS 3.8 mg/dL (2.5-4.9); POTASSIUM 4.2 mmol/L (3.5-5.1)
[2022-10-05 08:00] VITALS: BP 105/48
[2022-10-05] MEDS: LEVOTHYROXINE SODIUM 88 MCG TABLET PO SCH (08:04)
[2022-10-05] MEDS: CALCIUM CARBONATE (1250) 500 MG TABLET PO SCH ×3 (08:04→16:15)
[2022-10-05] MEDS: PANTOPRAZOLE 40 MG TABLET.DR PO SCH (08:04)
[2022-10-05] MEDS ORDERED: METO-358 PO (09:53)
[2022-10-05] MEDS ORDERED: METO-357 PO (09:53)
[2022-10-05] MEDS ORDERED: FERR325T23 PO (09:53)
[2022-10-05] MEDS ORDERED: POTA-88 PO (09:53)
[2022-10-05] MEDS ORDERED: BENA5TAB5 PO (09:54)
[2022-10-05] MEDS: RALOXIFENE 60 MG TABLET PO SCH (10:49)
[2022-10-05 12:00] VITALS: BP 116/44
[2022-10-05] MEDS: SOD FERRIC GLUC 125 MG in IV NS 0.9% 100 ML IV SCH (15:30)
[2022-10-05 16:00] VITALS: BP 114/55
[2022-10-05] MEDS: RIVAROXABAN 10 MG TABLET PO SCH (16:16)
--- NOTE | 2022-10-05 17:03 | NUR ---
RN NOTE MISC ORDER TO KEEP SBP >120 AND TO NOT ADMINSTER ANY BP MEDICATIONS BELOW SBP < 120
--- NOTE | 2022-10-05 19:15 | NUR ---
ESTHETICS INSTRUCTOR CLOSING NOTE PT IS ALERT AND ORIENTED X3-4. PT IS DIVEHI SPEAKING UNDERSTANDS SIMPLE COMMANDS IN FAROESE. CONTROLLED AFIB ON TELE MONITOR. PT ON ROOM AIR TOLERATING ABOVE 93%. PT HAS LEFT UPPER ARM MIDLINE. IV INTACT, PATENT AND FLUSHING WELL. PT IS STANDBY ASSISTANCE. ALL SAFETY MEASURES IN PLACE. CALL LIGHT WITHIN REACH. BED LOCKED AT LOWEST POSITION. SIDE RAILS UP X2. FAMILY AT BEDSIDE.ENDORSED TO PLASTIC CABLEMAKING MACHINE OPERATOR RN FOR CONTUITY OF CARE
--- NOTE | 2022-10-05 19:20 | NUR ---
MANAGER BUSINESS INFORMATION OPENING NOTE RECEIVED PATIENT FROM AM NURSE; PT IS ALERT AND ORIENTED X 3-4, WITH RELATIVES AT BEDSIDE; HEBREW SPEAKING BUT CAN UNDERSTAND LITTLE YORUBA; STABLE ON ROOM AIR BREATHING EVENLY AND NO S/S OF DISTRESS NOTED; HOOKED TO BLOCKMASON CURRENTLY READING CONTROLLED AFIB; WITH MIDLINE ACCESS AT LEFT UPPER ARM; SAFETY MEASURES IMPLEMENTED; BED LOCKED AT LOWEST POSITION, SIDE RAILS UP X2, CALL LIGHT AND TABLE WITHIN REACH; WILL CONTINUE TO MONITOR THROUGHOUT SHIFT
[2022-10-05 20:00] VITALS: BP 131/65
[2022-10-05] MEDS: SIMVASTATIN 20 MG TABLET PO SCH (21:02)
[2022-10-06] VITALS: BP 123/61
[2022-10-06] MEDS: METOPROLOL TARTRATE 25 MG TABLET PO SCH ×3 (00:29→13:38)
[2022-10-06 04:00] VITALS: BP 122/78
[2022-10-06 06:30] LABS: BASOPHILS % (AUTO) 0.5 % (0.0-2.0); EOSINOPHILS % (AUTO) 6.1 % (0.0-6.0); HEMATOCRIT 33 % (33-45); HEMOGLOBIN 10.8 g/dL (11.5-14.8); LYMPHOCYTES # (AUTO) 1.5 K/uL (0.8-4.8); LYMPHOCYTES % (AUTO) 18.1 % (20.0-44.0); MEAN CORPUSCULAR HGB CONC 32 g/dl (31.0-36.0); MEAN CORPUSCULAR VOLUME 93 fL (82-100); MONOCYTES # (AUTO) 0.7 K/uL (0.1-1.30); MONOCYTES % (AUTO) 8.3 % (2.0-12.0); NEUTROPHILS # (AUTO) 5.4 K/uL (1.8-8.9); PLATELET COUNT (AUTO) 252 K/uL (150-450); RED BLOOD CELL COUNT(AUTO) 3.59 MIL/uL (4.0-5.2); WHITE BLOOD COUNT (AUTO) 8.1 K/uL (4.3-11.0)
--- NOTE | 2022-10-06 06:51 | NUR ---
CALENDER INSPECTOR CLOSING NOTE PATIENT IS ALERT AND ORIENTED X 3-4; TURKMEN SPEAKING BUT CAN UNDERSTAND LITTLE MALIAN; STABLE ON ROOM AIR BREATHING EVENLY AND NO S/S OF DISTRESS NOTED; HOOKED TO ESL TUTOR CURRENTLY READING CONTROLLED AFIB; WITH MIDLINE ACCESS AT LEFT UPPER ARM; ADMINISTERED MEDICATIONS PRESCRIBED; PATIENT'S NEEDS ATTENDED; MONITORED PATIENT ACCORDINGLY; SAFETY MEASURES IMPLEMENTED; BED LOCKED AT LOWEST POSITION, SIDE RAILS UP X2, CALL LIGHT AND TABLE WITHIN REACH; WILL ENDORSE TO AM NURSE FOR JESSICA.
[2022-10-06 07:06] LABS: CALCIUM, SERUM 8.9 mg/dL (8.5-10.1); CARBON DIOXIDE 26 mmol/L (21-32); CHLORIDE 106 mmol/L (98-107); CREATININE 0.8 mg/dL (0.6-1.3); GLUCOSE 95 mg/dL (74-106); MAGNESIUM 2.3 mg/dL (1.8-2.4); PHOSPHORUS 4.7 mg/dL (2.5-4.9); POTASSIUM 3.7 mmol/L (3.5-5.1); SODIUM SERUM 133 mmol/L (136-145); UREA NITROGEN, BLOOD 12 mg/dL (7-18)
[2022-10-06] MEDS ORDERED: LEVOTHYROXINE SODIUM 75 MCG TABLET PO SCH (07:30)
[2022-10-06 08:00] VITALS: BP 126/82
[2022-10-06] MEDS: RALOXIFENE 60 MG TABLET PO SCH (08:37)
[2022-10-06] MEDS: CALCIUM CARBONATE (1250) 500 MG TABLET PO SCH ×3 (08:37→18:24)
[2022-10-06] MEDS: PANTOPRAZOLE 40 MG TABLET.DR PO SCH (08:37)
--- NOTE | 2022-10-06 08:45 | NUR ---
TELE BUSINESS MANAGEMENT ASSOCIATE OPENING NURSE RECEIVED PATIENT A/OX4, ABLE TO COMMUNICATE NEEDS. VINCENTIAN SPEAKING. O2 IN ROOM AIR 97%SAT. NO RESPIRATORY DISTRESS NOTED. MOVE ALL EXT. WITHOUT DIFFICULTY. SAFETY MEASURES IN PLACE. ON FALL PRECAUTION. ALARM ON, BED TO THE LOWEST POSITION. CALL LIGHT, TABLE WITHIN REACH. SIDE RAILS UP X2. ON TELEMETRY A-FIB CONTROLLED. WILL CONT. TO MONITOR. IV ACCESS LEFT ARM INTACT.
[2022-10-06 12:00] VITALS: BP 125/55
[2022-10-06] MEDS ORDERED: SIMV-46 PO (13:15)
[2022-10-06] MEDS ORDERED: METO25TA20 PO (13:15)
[2022-10-06] MEDS: SOD FERRIC GLUC 125 MG in IV NS 0.9% 100 ML IV SCH (15:32)
[2022-10-06 16:00] VITALS: BP 115/62
[2022-10-06] MEDS: RIVAROXABAN 10 MG TABLET PO SCH (18:23)
--- NOTE | 2022-10-06 18:30 | NUR ---
BOTTLE HOP PATIENT TRANSFERRED TO [facility] VIA AMBULANCE ,PT A/A/OX4 STABLE ASPER DOCTOR .[place] [facility] [place]. GOING ACCOMPANIED BY FAMILY MEMBERS AND APA SUPERVISOR LOGGING REPORT GIVE TO THE NURSE IN [facility] AND ALSO TO SUPERVISOR LOGGING. VSS.
== END 2022-10-06 19:30 | DRG 64 ==
LOC: ER 18:08 → TELE 21:00 → ICU 10-02 13:13 → TELE1 10-04 16:42
PROVIDERS: ADMIT Nurse Practitioner Acute Care; ATTEND Student in an Organized Health Care Education/Training Program
PROC: 05HA33Z Insertion of Infusion Device into Left Brachial Vein, Percutaneous Approach (ICD-10-PCS; principal; 2022-10-03)
DX: I63.412 Cerebral infarction due to embolism of left middle cerebral artery (principal); I21.A1 Myocardial infarction type 2; I48.20 Chronic atrial fibrillation, unspecified; G93.40 Encephalopathy, unspecified; E87.1 Hypo-osmolality and hyponatremia; R47.01 Aphasia; Z20.822 Contact with and (suspected) exposure to COVID-19; E03.9 Hypothyroidism, unspecified; I10 Essential (primary) hypertension; R29.711 NIHSS score 11; Z95.5 Presence of coronary angioplasty implant and graft; Z87.891 Personal history of nicotine dependence; E78.5 Hyperlipidemia, unspecified; Z86.16 Personal history of COVID-19; I27.20 Pulmonary hypertension, unspecified; K21.9 Gastro-esophageal reflux disease without esophagitis; E78.00 Pure hypercholesterolemia, unspecified; I25.10 Atherosclerotic heart disease of native coronary artery without angina pectoris; D64.9 Anemia, unspecified; E87.6 Hypokalemia; Z79.01 Long term (current) use of anticoagulants; Z79.899 Other long term (current) drug therapy; I65.23 Occlusion and stenosis of bilateral carotid arteries; Z98.890 Other specified postprocedural states; E73.9 Lactose intolerance, unspecified
CPT/HCPCS: 36415; 70450-TC; 70496-TC; 70498-TC; 70551-TC; 71045-TC; 80048-TC; 80061-TC; 80076-TC; 82728-TC; 82962-TC; 83540-TC; 83735-TC; 83880; 84100-TC; 84443-TC; 84484-TC; 85025-TC; 85652-TC; 85730-TC; 87081-TC; 92507-TC; 92521; 92526; 92611-TC; 93307-TC; 93880-TC; 93970-TC; 97116-TC; 97530-TC; A4223; C9803; G0378; J0360; J1160; J2405; J2916; J3480; J7030; J7042; J7050; Q9967